=== PATIENT | male | born 1940 | race African-American/Black ===

== ENCOUNTER 2019-02-22 15:46 | Inpatient (IN) | payer OTHER ==
[~2019-02-22] VITALS: Ht 177.8 cm; Wt 66.0 kg
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
[2019-02-22 15:49] VITALS: BP 149/68
[2019-02-22] MEDS ORDERED: COREG25 MG PO (16:28)
[2019-02-22] MEDS ORDERED: ACIDOPHILUS1 EAC4 PO (16:28)
[2019-02-22] MEDS ORDERED: CELEXA10 MG PO (16:29)
[2019-02-22] MEDS ORDERED: CLONIDINE HCL0.2 M2 PO (16:29)
[2019-02-22] MEDS ORDERED: PLAVIX 75 MG TA75 M1 PO (16:29)
[2019-02-22] MEDS ORDERED: COLACE100 MG PO (16:29)
[2019-02-22] MEDS ORDERED: PROSCAR 5MG TABL5 MG PO (16:30)
[2019-02-22] MEDS ORDERED: CARDURA4 MG PO (16:30)
[2019-02-22] MEDS ORDERED: HYDROCHLOROTHIA25 M2 PO (16:31)
[2019-02-22] MEDS ORDERED: GALANTAMINE HBR24 MG PO (16:31)
[2019-02-22] MEDS ORDERED: COZAAR 25 MG TA25 M1 PO (16:35)
[2019-02-22] MEDS ORDERED: IMDUR 30 MG TAB30 M1 PO (16:35)
[2019-02-22] MEDS ORDERED: MIRALAX17 GM PO (16:36)
[2019-02-22] MEDS ORDERED: REMERON15 MG PO (16:36)
[2019-02-22] MEDS ORDERED: NAMENDA 10 MG T10 MG PO (16:37)
[2019-02-22] MEDS ORDERED: NEXIUM40 MG PO (16:37)
[2019-02-22] MEDS ORDERED: NITROGLYCERIN0.4 MG SUBLING (16:37)
[2019-02-22] MEDS ORDERED: OXYBUTYNIN 5 MG5 M2 PO (16:38)
[2019-02-22] MEDS ORDERED: SEROQUEL 25 MG25 M1 PO (16:41)
[2019-02-22] MEDS ORDERED: TRAMADOL 50 MG50 MG PO (16:42)
[2019-02-22 18:34] LABS: HEMATOCRIT 36.1 % (42.0-52.0); HEMOGLOBIN 11.6 gm/dL (14.0-18.0); MCH 27.5 pg (26.0-34.0); MCHC 32.2 g/dL (28.0-37.0); MCV 85.5 fL (80.0-100.0); PLATELET COUNT 242 thou/uL (150-400); RBC 4.23 mil/uL (4.50-6.00); WBC 6.3 thou/uL (4.0-11.0)
[2019-02-22 18:50] LABS: CALCIUM 9.3 mg/dL (8.5-10.1); CREATININE 0.8 mg/dL (0.7-1.3); POTASSIUM 3.3 mmol/L (3.5-5.1)
[2019-02-22 18:54] LABS: ALBUMIN 2.9 g/dL (3.4-5.0); TOTAL BILIRUBIN 0.2 mg/dL (<0.1-1.0)
[2019-02-22 19:09] LABS: ABSOLUTE NEUTROPHILS 3.5 thou/uL (1.4-8.2)
[2019-02-22 19:10] LABS: PLATELET ESTIMATE NORMAL
[2019-02-22 19:40] LABS: URINE BILIRUBIN NEGATIVE (Negative); URINE BLOOD 1+ (Negative); URINE CLARITY CLEAR; URINE COLOR YELLOW; URINE GLUCOSE-RANDOM* NEGATIVE (Negative); URINE KETONES NEGATIVE (Negative); URINE NITRITE-REFLEX NEGATIVE (Negative); URINE PROTEIN (DIPSTICK) 1+ (Negative); URINE SPECIFIC GRAVITY 1.015 (1.005-1.035); URINE UROBILINOGEN >= 8.0 E.U./dl (0.2-1.0)
[2019-02-22 19:43] LABS: URINE LEUKOCYTES-REFLEX 3+ (Negative)
[2019-02-22 19:54] LABS: AMP/METHAMP Negative (Negative); BARBITURATES Negative (Negative); BENZODIAZEPINES POSITIVE (Negative); COCAINE Negative (Negative); METHADONE Negative (Negative); OPIATES Negative (Negative); PCP Negative (Negative)
[2019-02-22 19:56] LABS: BACTERIA-REFLEX >30 Many /HPF (None Seen); CASTS None Seen /LPF (None Seen); CRYSTALS None Seen /LPF (None Seen); SQUAMOUS 0-3 Few /LPF (0-3); URINE RBC None Seen /HPF (0-2); URINE WBC-REFLEX >25 Many /HPF (0-5)
[2019-02-22 20:07] VITALS: BP 156/95
[2019-02-22 20:40] VITALS: BP 201/99
--- NOTE | 2019-02-23 00:57 | NUR ---
Admission Note: Patient currently resides at [facility]. Patient has been more aggressive and combative at his facility including biting, hitting, spitting and making threatening gestures. Patient had been verbally aggressive using profanity and physically aggressive. Patient was transported to [facility] for medical clearance. Patient was brought up to the unit by ED staff on [facility]. Patient initially pleasant and cooperative. Patient odorous and noted to have had an incontinent episode of bladder and bowel. Lorna care provided, clothing changed and washed, skin assessment completed. Skin currently warm, dry and intact. Patient alert and oriented to person only. Confused and forgetful. 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 Patient required max assist with staff x2 for stand/pivot transfer from [facility] to [facility]. Patient speech initially clear but is mumbling at times and having scattered thoughts. Denies pain or discomfort at this time. Patient requested to go to bed and was assisted to bed. Yellow socks and shirt on, bed alarm on, bed is in lowest position. MD notified of arrival to unit and orders were received for admission and medications. All orders noted. Patient did attempt to get out of bed in which staff responded, approximately 45 minutes after arriving to the unit. Patient was then verbally aggressive, cursing at staff, unable to be re-directed. Patient anxious and agitated. Nurse took HS medication to patient. Patient continued to curse and yell at nurse. Nurse sat with patient until he was able to calm down. At that point, patient did state "why don't you just let me , why do you care so much?" Patient denies SI/HI but states that he is "ready to go" if it is his time. Patient would have good meaningful conversation then become agitated and start cursing again. Labile mood noted with poor eye contact observed. Patient re-directed by several staff that he is in the hospital. Patient unable to be re-directed and states that all staff are lying to him. After much encouragement, patient took HS medication whole in applesauce. Patient declined any further snack. Patient currently receives Rocephin IM for the diagnosis of UTI. First dose administered this shift. No s/s of adverse effects noted at this time. Spoke with patient significant other Maria D over the phone. Verbal consent received for admission. Notified her of passcode and unit visitation times. Patient yonathan been resting quietly since approximately 30 minutes after taking HS medication.
[2019-02-23 09:31] VITALS: BP 135/71
--- NOTE | 2019-02-23 12:24 | NUR ---
Donna spoke with pt's RENETTA horn and completed the SW intake, and is available to come in for a fmaily meeting next week during the AM, she will be including pt's siblings and will call DONNA with a date and time. She also reports chuyita pt will likely return to [facility] on D/C
[2019-02-23 20:39] VITALS: BP 154/69
[2019-02-23 23:32] VITALS: BP 154/69
--- NOTE | 2019-02-24 04:19 | NUR ---
PT OUT IN DAYROOM EARLY IN THE SHIFT. COOPERATIVE WITH PHYSICAL ASSESSMENT. CONFUSED. ESCORTED TO BED FOLLOWING HS SNACKS AND MEDS. HAS SLEPT WELL THROUGH THE NIGHT TO THIS POINT IN THE AM.
[2019-02-24 07:44] VITALS: BP 152/93
--- NOTE | 2019-02-24 11:02 | NUR ---
Pt's SO will be present for a family meeting on TR at 11am. Reported this to Dr Mccabe.
--- NOTE | 2019-02-24 16:31 | NUR ---
PT A&O TO SELF. PT HAS NOT CURSED AT STAFF TODAY, NO SI/HI NOTED. TOOK ALL PO MEDS WHOLE THIS AM. L SIDE WEAKNESS NOTED REQUIRES ASSIST X2 TO STAND AND PIVOT TO CHAIR/BSC. HAS BEEN OUT OF BED SINCE THIS AM. PT IS CONFUSED THOUGH CALM. EATING ALL MEALS.
[2019-02-24 20:40] VITALS: BP 155/70
[2019-02-24 22:35] VITALS: BP 155/70
--- NOTE | 2019-02-25 02:16 | NUR ---
Patient seated in day room in recliner this evening. At approximately 2030, nurse noted that patient was experiencing the hiccups. Patient asked if he was OK, he nodded yes. A couple minutes later, nurse heard patient coughing then visualized patient vomiting a large amount of vomit. Vomit appears brown and viscous. Patient had mixed fruit for HS snack which was included in the vomitus. Patient stated that he felt much better after vomiting. Patient assisted to his room. Sponge bath given and clothing changed. No further vomiting or nausea observed.
--- NOTE | 2019-02-25 04:10 | NUR ---
PT ESCORTED TO BED AND SETTLED IN. ABOUT 399, PT EXPERIENCED ANOTHER EPISODE OF N/V. BROWNISH COLORED VOMITUS IN BED AND AREA AROUND BED. PT CLEANED UP AND LINEN CHANGED. ZOFRAN 4MG PO FOR NAUSEA. CLAIMS TO BE "FEELING BETTER" AFTER THE EPISODE. UPON EXAM, FIRM STOOL REMAINS IN RECTUM. LAST DOCUMENTED BM WAS ON 02/22. ABDOMEN SOFT. WILL OBSERVE FOR FURTHER DIFFICULTY. HAD BEEN SLEEPING WELL TO THAT POINT.
[2019-02-25 06:40] LABS: HEMATOCRIT 42.5 % (42.0-52.0); MCH 27.6 pg (26.0-34.0); MCHC 33.1 g/dL (28.0-37.0); MCV 83.3 fL (80.0-100.0); RBC 5.11 mil/uL (4.50-6.00); RDW 14.5 % (10.5-14.5); WBC 9.6 thou/uL (4.0-11.0)
[2019-02-25 06:43] LABS: HEMOGLOBIN 14.1 gm/dL (14.0-18.0)
[2019-02-25 06:50] LABS: CALCIUM 10.3 mg/dL (8.5-10.1); CREATININE 0.8 mg/dL (0.7-1.3); MAGNESIUM 1.6 mg/dL (1.8-2.4)
--- NOTE | 2019-02-25 07:16 | NUR ---
Patient had another episode of dark brown emesis, foul odor, concerning for stool. Order received for Zofran 4mg IM. Medication administered. Lab came to collect stat labs. KUB completed. Lab called with notification of Hgb 14.1. Waiting on KUB results to notify MD. BP 189/112, HR 107, Resp 22, O2 95% RA, Temp 98.6. Patient reporting a headache, unable to rate.
[2019-02-25 08:53] VITALS: BP 194/107
[2019-02-25 10:42] VITALS: BP 148/84
--- NOTE | 2019-02-25 19:47 | NUR ---
IV STARTED AT APPROX 1145 BY IV START TEAM-RIGHT FORARM 22 GUAGE NEEDLE-WRAPPED WITH COBAN AND PT MONITORED CONTNOUSLY LYNSEY [id number] UPON COMPLETION OF IV FLUIDS-SITE SALINE LOCKED PER MD ORDER FOR CONTINUED EPISODES OF N/V AND HTN. BP 170/100 AT 1700-DR SIMONS NOTIFIED-ORDERS RECEIVED-CLOINIDINE 0.1MG GIVEN PO X1 NOW ALONG WITH 1700 SCHEDULED COREG-PT DID VOM IT SHORT TIME LATER-MD NOTIFIED AND ORDER RECEIVED FOR COMPAZINE 10MG IV PUSH. BP MEDS REGIVEN AND BP RECHECK AT 1800 206/111- DR. SIMONS AND DR. FREGOSO NOTIFIED-HYDRALAZINE 10MG GIVEN IV AND BP RECHECK AT 1850 160/94. FLEETS ENEMA GIVENAT 1830-ASSISTED TO COMMODE AND HAD LARGE SOFT FORMED STOOL-DR. SIMONS ON UNIT AT APPROX [id number] PARTNER NADIA CONTACTED AND ADDITIONAL HISTORY OBTAINED-SHE REPORTS PT WAS RECENTLY ADMITTED TO [facility] APPROX 2 WEEKS AGO [facility] UNMANAGABLE BP-SEES AND [facility] AT [facility].
[2019-02-25 19:50] VITALS: BP 170/99
--- NOTE | 2019-02-25 23:30 | NUR ---
ASSUMED CARE OF PATIENT AT SHIFT CHANGE AT 1900. DAY SHIFT RN CHLOE STILL PRESENT DR NERI CAME IN TO ASSESS PATIENT. PATIENT'S BP STILL RUNNING HIGH AT 162/90 AFTER HYDRALAZINE 10MG IVPUSH GIVEN AT 1930. COMPAZINE 5MG GIVEN ALSO FOR N/V [id number]. PATIENT HAD LARGE BM RESULTS WITH ENEMA AROUND 1730 TODAY. PATIENT'S BP AT 2135 199/102. HYDRALIZINE 25MG PO GIVEN PER HOSPITALIST DANNA GREWAL. PATIENT ALSO GIVEN COMPAZINE 5MG IVP AT 2142 FOR NAUSEA AND DRY HEAVES. PATIENT HAS KEPT THE HYDRALAZINE 25MG PILL DOWN. B/P AT 2320 IS 199/102. PATIENT'S NEXT DOSE OF HYDRALAZINE NOT DUE TILL 0130. CALLED AND LEFT MESSAGE FOR Uriel HUDSON NP TO CALL BACK REGARDING WHAT TO DO WITH THIS HIGH BP. STILL AWAITING CALL BACK. PATIENT REFUSING 2ND ENEMA. PATIENT IS RESTING AND NO N/V IF LEFT UNMOVED. PATIENT SLEEPING IN BETWEEN BP CHECKS. PATIENT HAD STROKE A LITTLE OVER WEEK AGO AND ALERTED HANNAH CLAY IN TELEPHONE MESSAGE TO HER. PATIENT RESTING QUIETLY AT THIS TIME. WILL CONTINUE MONITORING BP AND N/V STATUS.
[2019-02-26] VITALS (7 sets, daily range): BP systolic 122–169; BP diastolic 66–98
--- NOTE | 2019-02-26 00:06 | NUR ---
CALLED LOADER MAGAZINE GRINDERHANNAH BACK SINCE HAD NOT HEARD BACK FROM HER. LET HER KNOW THAT THE BP HAS NOW COME DOWN TO 169/98 AND P 86. SHE INSTRUCTED JUST TO WAIT TILL NEXT DOSE OF HYDRALAZINE 10MG IVP IS DUE AND GIVE ONLY IF SYSTOLIC IS OVER 160. PATIENT SLEEPING AT THIS TIME AND NO VOMITING. CONTINUING TO MONITOR.
--- NOTE | 2019-02-26 01:54 | NUR ---
CALLED HANNAH HUDSON NP WITH PATIENT'S BP AT 215/103 AND PULSE 100. LET HER KNOW IT WAS TIME TO GIVE HYDRALAZINE 10MG IVP AND WANTED TO KNOW IF SHE WANTED ME TO GIVE MORE THAN 10 MG OF HYDRALAZINE OR TRY SOMETHING ELSE. SHE ORDERED THE HYDRALAZINE 10MG IVP AND ZOFRAN 4MG 0DT FOR NAUSEA. SHE IS INCREASING HIS SCHEDULED DOSES OF HYDRALAZINE AND COMPAZINE BEGINNING AT 0600 TODAY. SHE STATES SHE IS REVIEWING HIS CHART AND WILL DECIDE WHETHER TO ADMIT PATIENT AND WHEN UNDER DR RODRIGUES. THIS NURSE CONTINUING TO MONITOR PATIENT'S BP AND N/V STATUS UNTIL SOMETHING CHANGES. IV SITE IN PLACE AND PATENT WITH NS FLUSH BEFORE AND AFTER HYDRALAZINE IVP. CONTINUING TO MONITOR PATIENT.
[2019-02-26 05:40] LABS: HEMATOCRIT 41.8 % (42.0-52.0); HEMOGLOBIN 13.4 gm/dL (14.0-18.0); MCH 27.1 pg (26.0-34.0); MCV 84.8 fL (80.0-100.0); RBC 4.93 mil/uL (4.50-6.00); RDW 14.7 % (10.5-14.5); WBC 14.8 thou/uL (4.0-11.0)
[2019-02-26 05:47] LABS: CALCIUM 9.3 mg/dL (8.5-10.1); CREATININE 0.7 mg/dL (0.7-1.3); MAGNESIUM 1.7 mg/dL (1.8-2.4); POTASSIUM 3.1 mmol/L (3.5-5.1)
--- NOTE | 2019-02-26 06:33 | NUR ---
CALLED HANNAH WOOD NP TO VERIFY THAT IT IS OK TO HYDRALAZINE 50MG FOR PATIENT'S BP OF 141/87. SHE SAID TO GO AHEAD AND GIVE. ALSO LET HER KNOW THAT PATIENT'S MAGNESIUM LEVEL IS 3.1 THIS MORNING PER LABS AND WAS 3.0 YESTERDAY MORNING BEFORE GIVING MAGNESIUM IV YESTERDAY. SHE STATES SHE WILL LET US KNOW WHEN SHE COMES IN WHAT SHE WANTS TO DO ON THE MAGNESIUM. PATIENT'S BP HAS BEEN SLOWLY COMING DOWN. IT WAS 155/83 AT 0500 AND AT 0630 IT IS 141/87. PATIENT IS ABLE TO HOLD PILLS DOWN. HE DID NOT HAVE A BM LAST NIGHT BUT DID HAVE SOME SMEARING. NOTIFIED HANNAH Cespedes NP THAT PATIENT DID NOT GET 2ND ENEMA D/T HE REFUSED AND WAS FIGHTING BP AND N/V ALL NIGHT. SHE SAID OK FOR NOW.
--- NOTE | 2019-02-27 00:08 | NUR ---
PATIENT IS LAYING IN BED AND A/O X 2. HE STATES HE IS FEELING BETTER TONIGHT THEN HE DID. PATIENT UP TO [facility] WITH X2 ASSIST. HEMIPARESIS ON LEFT SIDE OF BODY. PATIENT STILL WITH SLIGHT NAUSEA BUT DOES NOT WANT ANY MEDS FOR IT AT THIS TIME. HE IS ABLE TO TAKE HIS MEDS WHOLE. HE REFUSES HS SNACK. BP TONITE IS STABLE AT 149/71. PATIENT IS INCONTINENT AT TIMES. PATIENT HAS BOWEL SOUNDS X 4. NO BM OF YET ON THIS SHIFT. PATIENT DENIES PAIN. PATIENT SPEAKS VERY SOFTLY. HE IS JOKING TONITE. HE GOT IRRITATED WITH HIMSELF WHEN HE SPILLED WATER ON HIMSELF. PATIENT SITS UP IN A HIBACK WC DURING DAY. BED IN LOW POSITION AND BED ALARM ON.
--- NOTE | 2019-02-27 06:35 | NUR ---
PATIENT WAS UP AND CHANGED AND IN WC AT 3AM THIS MORNING. HE HAS BEEN IN [facility] SPIRITS. DENIES PAIN OR NAUSEA. PATIENT HAS BEEN SOCIALIZING APPROPRIATELY IN DINING ROOM WITH OTHER RESIDENTS. HE HAS OCCASIONAL VISUAL HALLUCINATIONS. TODAY HE SWEARS HE SAW HIS UNCLE JANIS WALKING THE HALLS. PATIENT A/0 X1
[2019-02-27 06:50] LABS: HEMATOCRIT 39.9 % (42.0-52.0); HEMOGLOBIN 12.8 gm/dL (14.0-18.0); MCH 27.2 pg (26.0-34.0); MCHC 32.2 g/dL (28.0-37.0); MCV 84.6 fL (80.0-100.0); RBC 4.72 mil/uL (4.50-6.00); RDW 14.2 % (10.5-14.5); WBC 14.6 thou/uL (4.0-11.0)
[2019-02-27 07:23] LABS: CALCIUM 9.4 mg/dL (8.5-10.1); CREATININE 0.8 mg/dL (0.7-1.3); MAGNESIUM 1.8 mg/dL (1.8-2.4); POTASSIUM 3.7 mmol/L (3.5-5.1)
--- NOTE | 2019-02-27 12:52 | NUR ---
Care assumed of patient at 0715: Patient alert and oriented to person. Patient confused and forgetful. Patient seated in w/c for locomotion about room and unit. Patient has hemiplegia post CVA. Denies pain or discomfort. Speech slurred and mumbled at times. Able to make immediate wants/needs known. Patient believes that he is at a train station or an airport and is concerned about when the train/plane is going to be leaving. Patient worried about his fiance knowing where he is at. Patient more confused and delusional this AM. Patient unable to be re-directed this AM. Irritable and agitated at times. No verbal or physical aggression observed. Took HS medication whole without difficulty. Denies SI/HI/AH/VH. Patient had a visitor this AM which appeared to calm him down and introduce him more to reality.
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
[2019-02-27 16:29] VITALS: BP 90/52
--- NOTE | 2019-02-27 16:29 | NUR ---
DONNA called and left a VM for [facility], then sent a fax update
[2019-02-27 19:38] VITALS: BP 111/69
[2019-02-28 00:07] VITALS: BP 111/69
--- NOTE | 2019-02-28 00:13 | NUR ---
PATIENT WAS SITTING UP IN DINING ROOM WITH OTHERS WHEN I CAME ON SHIFT AT 1900. HE WAS PLEASANT AND ASKED WHY HE WAS HERE. EXPLAINED THAT HE HAD SOME BP ISSUES AND BECAME COMBATIVE AND WAS HITTING OTHERS. HE BECAME REMORSEFUL AND SAID," I AM SO SORRY. I DON'T EVER WANT TO HURT ANYONE." I WENT ON TO EXPLAIN THAT HIS BP HAD BEEN UP AND SOMETIMES IT CAUSES PEOPLE TO ACT MORE ANGERED. HE HAS BEEN UP IN HIS WC MOST OF THE DAY. HE REQUESTED HIS HS PILLS JUSTINE SO HE COULD GO TO BED FOR THE NIGHT. HE BECAME VERY AGITATED 45 MINUTES LATER HE WAS WAITING ON TIME FOR HIS PILLS AND SAT OUTSIDE THE NURSE'S STATION SHOUTING OUT TO HURRY UP BECAUSE HE HAS WAITED LONG ENOUGH AND WANTS TO GO TO BED. WENT TO GIVE PILLS TO PATIENT AND PUT HIM TO BED. HE IS ASSIST X 2-3 D/T LEFT SIDED HEMIPARESIS. HE GOT ANGRY AND SAID HE DID NOT WANT TO GO TO BED AND NEVER SAID HE DID. PATIENT PLACED BACK IN DR TO SIT TILL HE WAS MORE READY. PATIENT FINALLY PUT TO BED AN HOUR LATER WITHOUT COMPLAINTS. DENIES PAIN, N/V. NO BM ON THIS SHIFT SO FAR. PATIENT IS INCONTINENT AND IS CHECKED Q 2 HOURS. BED ALARM ON AND BED IN LOW POSITION. PATIENT HAS TRIED ON EARLIER SHIFT TO STAND ON HIS OWN. MONITORING CLOSELY.
[2019-02-28 08:59] VITALS: BP 122/62
--- NOTE | 2019-02-28 16:01 | NUR ---
DONNA and Dr Mccabe met with pt and his family today. Pt will likely d/c to [facility] early next week Monday or monday
--- NOTE | 2019-02-28 16:46 | NUR ---
PT ALERT AND ORIENTED TIMES THREE WITH SOME CONFUSION. VSS. PT DENIES SI/HI/AH/VH. PT TOLERATES MEDS AND MEALS. PT UP PER WC. PT DID ATTEND ONE GROUP TODAY. WILL CONTINUE TO MONITOR.
[2019-02-28 21:05] VITALS: BP 136/73
--- NOTE | 2019-03-01 05:18 | NUR ---
The pt. was talkative with staff, irritable when he got a new roomate. He refused his HS medications afterwards, even after talking with him further. He slept well tonite, used fall precautions.
[2019-03-01 08:17] VITALS: BP 127/71
--- NOTE | 2019-03-01 13:34 | NUR ---
Received awake, on a wheelchair in the day unit. Vital signs stable. Medications given as prescribed, able to swallow tablets w/o difficulty. A+O2-3 with episodes of confusion. On room air. Visited by today- she said that they are working on getting him a wheelchair from [place]. Pt seen by Physical therapist today, able to stand patient up- moderate assist, step pivot for transfers, taught pt to do stretches for his shoulders. No agression or restlessness noted from the patient. Assisted with ADLs. Tolerating meals, no nausea, no vomiting or abdominal pain noted.
--- NOTE | 2019-03-01 14:04 | NUR ---
Date of Admission: 02/22/19 Date of Activity Therapy Assessment: 02/25/19 Activity Goal: Increase engagement Initial Goal: 1 Group activity/day Weekly progress towards goal: On track Group participation level: Moderate Behaviors observed: Patient's participation lacked during first few days of admission d/t medical needs. Patient has now begun to attend groups though not consistently. Patient does not exhibit aggression or combative behavior when present in group. Plan: No change towards goal
[2019-03-01 14:51] VITALS: BP 127/44
--- NOTE | 2019-03-01 16:07 | NUR ---
Sw sent updates to [facility].
[2019-03-01 16:31] LABS: HEMATOCRIT 37.5 % (42.0-52.0); MCHC 32.1 g/dL (28.0-37.0); MCV 84.3 fL (80.0-100.0); PLATELET COUNT 259 thou/uL (150-400); RBC 4.45 mil/uL (4.50-6.00); RDW 14.7 % (10.5-14.5); WBC 7.2 thou/uL (4.0-11.0)
[2019-03-01 16:48] LABS: ANION GAP 5 mmol/L (7-16); BUN 21 mg/dL (7-18); CALCIUM 8.8 mg/dL (8.5-10.1); CHLORIDE 101 mmol/L (98-107); CO2 33 mmol/L (21-32); CREATININE 0.8 mg/dL (0.7-1.3); GLUCOSE 113 mg/dL (74-106); POTASSIUM 3.5 mmol/L (3.5-5.1); SGOT 8 U/L (15-37); SGPT < 6 U/L (30-65); SODIUM 139 mmol/L (136-145); TOTAL BILIRUBIN 0.4 mg/dL (<0.1-1.0); TOTAL PROTEIN 6.5 g/dL (6.4-8.2)
[2019-03-01 16:56] LABS: ABSOLUTE NEUTROPHILS 3.7 thou/uL (1.4-8.2); ANISOCYTOSIS 1+
[2019-03-01 19:44] VITALS: BP 129/75
[2019-03-02 00:57] VITALS: BP 129/75
--- NOTE | 2019-03-02 02:03 | NUR ---
This nurse in doing rounds. Patient was holding his upper left chest, moaning, grimacing. Nurse asked patient if he was having pain, he stated yes. When asked to rate his pain, patient was unable to do so. When asked if patient was going to vomit, patient stated "no". DANNA Marmolejo notified. Order obtained for STAT EKG and STAT Troponin level. VS 162/79, HR 80, Resp 14, Temp 98.9, O2 94% RA. Patient provided Nitro tab 0132 po. Patient continued to report pain. At 0140, Nitro tab and Mylanta po provided. EKG completed. Preliminary NSR with left bundle branch block. At 0150, patient reported that he was still having some pain but was feeling "better". BP 141/82, HR 86, Resp 14, O2 86% RA. Patient resting quietly at this time. Awaiting lab results.
--- NOTE | 2019-03-02 03:52 | NUR ---
RESULTS OF TROPONIN .08. NORMAL RANGE LESS THAN .08. PT RESTING QUIETLY AT THIS TIME.
--- NOTE | 2019-03-02 06:09 | NUR ---
Patient Troponin level 0.08 this AM. DANNA Marmolejo, notified of EKG results and Troponin level. No prior EKG study available to see if left BBB is new or routine for patient. Order received for EKG and Troponin level at 0800 this morning. Also to consult Dr. Noe Hanson, cardiology. Spoke with Tr with answering service for Dr. Hanson regarding new consult.
[2019-03-02 07:36] VITALS: BP 171/84
--- NOTE | 2019-03-02 10:20 | EKG ---
[place] [address] [facility] [employer] [address] ELECTROCARDIOGRAM REPORT Name: DEVIN CRANE Room #: 526B-B ADM IN M.R.#: [id number] Admission: 02/22/19 Attend Phys: Topher Mccabe DO Discharge: Date of : 44 Report #: [id number] THIS REPORT FOR: //name// [facility] Test Date: 2019-03-02 Test Time: 01:50:47 Pat Name: DEVIN CRANE Department: Room: 52 B Gender: M Ditch Rider: MEDARDO : 1940 Requested By: Nelda Marmolejo Order Number: [id number] MD: Noe Hanson Measurements Intervals [place] Rate: 88 P: 40 WI: 166 QRS: -67 QRSD: 126 T: 86 QT: 391 QTc: 473 Interpretive Statements Sinus rhythm Left bundle branch block No previous ECG available for comparison Electronically Signed On 03-02-2019 10:20:31 CDT by Noe Hanson [email or web address] <ELECTRONICALLY SIGNED> By: Noe Hanson MD 03/02/19 1020 0150 0150 Noe Hanson MD /EPI
[2019-03-02 16:53] VITALS: BP 108/63
--- NOTE | 2019-03-02 18:27 | NUR ---
PATIENT ORIENTED TO SELF AND LOCATION AND MOSTLY COOPERATIVE, BUT SOMETIMES REFUSING MEDS. SPOUSE AT AM VISITING HOURS. SPOUSE REQUEST PATIENT TO BE SHAVED. PATIENT WAS SEVERAL HOURS SLEEPING IN BED THIS AFTERNOON. POSSIBLE DC TO [facility] ON MONDAY.
[2019-03-02 19:58] VITALS: BP 149/73
--- NOTE | 2019-03-03 02:02 | NUR ---
1909-Report received from day shift nurse and care assumed. Keagan had a bright affect tonite, smiling talking with continuity writer during assessment, alert answering questions asked also. He was medication compliant. His temperature at shift change was 99.3F and later at 2300 rechecked and 97.9F. He had no c.o. pain, was restless/wide awake in his bed with no c.o. voiced/no c.o. pain/repositioned every 2 hours, at 0000 and ordered Seroquel 50 mg. po x 1 now and he was given that at 0045 when available. It was effective for his restlessness, was asleep on rounds at 0130. bu
[2019-03-03 06:30] VITALS: BP 152/79
--- NOTE | 2019-03-03 07:27 | HC ---
[facility] [place] [address] CONSULTATION Name: DEVIN CRANE Room #: 526B-B ADM IN M.R.#: [id number] Admission: 02/22/19 Attend Phys: Topher Mccabe DO Discharge: Date of : 44 Report #: [id number] THIS REPORT FOR: //name// CC: Dawit Mccabe DATE OF SERVICE: 03/02/2019 CARDIOLOGY CONSULTATION CHIEF COMPLAINT: Chest pain. HISTORY OF PRESENT ILLNESS: This is a 78-year-old gentleman with a history of dementia, CVA, hypertension, depression, admitted to the [facility] for agitation and combativeness. He was diagnosed with UTI, undergoing treatment with antibiotics. We are asked to evaluate the patient for chest pain. The patient describes a discomfort in his left lower sternal area, reproducible with palpation over the area. He denies any shortness of breath, lightheadedness or palpitations. The initial troponin level is 0.08. The ECG reveals sinus rhythm, with nonspecific IVCD and left axis deviation. The patient is not oriented to place or year. PAST MEDICAL HISTORY: Dementia with severe depression, prior history of CVA with hemiplegia, history of hypertension, osteoarthritis. ALLERGIES: AMLODIPINE, DONEPEZIL, LISINOPRIL, DULOXETINE. FAMILY HISTORY: Unobtainable. MEDICATIONS: Please see the MAR for full listing. SOCIAL HISTORY: No apparent history of tobacco use. REVIEW OF SYSTEMS: Unobtainable. PHYSICAL EXAMINATION: VITAL SIGNS: Blood pressure is 160/80, heart rate is 80 beats per minute. GENERAL APPEARANCE: This is a thin, elderly, male in no acute distress. HEENT: Normocephalic, atraumatic. Oral mucosa moist. NECK: Supple. LUNGS: Clear to auscultation. CARDIAC: Regular rate and rhythm, S1, S2 positive. ABDOMEN: Soft, nontender. EXTREMITIES: No cyanosis, no edema. LABORATORY VALUES: White count 7.2, hemoglobin is 12.0. Creatinine is 0.8. [facility] [address] [place] [address] CONSULTATION Name: DEVIN CRANE Room #: 526B-B ADM IN .R.#: [id number] Admission: 02/22/19 Attend Phys: Topher Mccabe DO Discharge: Date of : 44 Report #: [id number] Troponin is 0.08 ECG reveals sinus rhythm, nonspecific IVCD, left axis deviation. ASSESSMENT AND PLAN: 1. Chest pain syndrome, the pain is atypical, it is reproducible with palpation over the left lower sternal area, probably due to musculoskeletal etiology. The significance of a minimal troponin level is unclear. It may be a false positive. He has unknown previous cardiac history. We will obtain an echocardiogram. Doubt that this is ischemia related. 2. Hypertension. Continue on carvedilol, clonidine, Cardura and losartan. 3. Cerebrovascular accident. Continue with Plavix therapy. 4. Depression/dementia. Continue with medications and therapy. <ELECTRONICALLY SIGNED> By: Noe Hanson MD 03/03/19 0727 0807 0032 Noe Hanson MD /nt
[2019-03-03 07:52] VITALS: BP 150/73
--- NOTE | 2019-03-03 11:48 | NUR ---
Has been up this morning, he is alert and oriented x 2, he denies pain, he is calm and cooperative with meds and meals, he denies SI/HI and AVH, he has no agitation at this time, stated he is doin well and wants to go "home" not sure "why I'm here". Continue to monitor for behaviors and safety.
[2019-03-03 19:52] VITALS: BP 164/88
--- NOTE | 2019-03-04 01:41 | NUR ---
PATIENT WAS IN BED ON ASSESSMENT. IS ALERT X 1, AND CONFUSED. NO S/S OF AH/VH OBSERVED. TAKES DIET WELL. TAKES PILLS WHOLE WITH OUT PROBLEMS. HAS LEFT SIDE WEAKNESS FROM STROKE. W/C BOUND. NO THREATS THIS SHOIFT SO FAR TO STAFF. SLEEPING WELL TONIGHT. IS INCOT OF BLADDER AND BOWEL. UP TO W/C TO BATHROOM WHEN HE WAKEWS UP. VS GOOD. DENIES ANY PAIN. NO COMBATIVE BEHAVIOR THIS SHIFT SO FAR TO RN. CONT PLAN OF CARE.
[2019-03-04 09:28] VITALS: BP 134/77
[2019-03-04 09:40] VITALS: BP 134/77
--- NOTE | 2019-03-04 11:31 | NUR ---
Assess due to length of stay. Admit to [facility] unit for depression and vascular dementia. Was constipated and not eating much, S/P enema with +BM and intake showing some improvement. No wt loss during stay. Discharge pending soon. Low nutrition risk
[2019-03-04] MEDS ORDERED: CATAPRES-TTS 20.2 MG TRANSDERM (15:22)
[2019-03-04] MEDS ORDERED: HYDRALAZINE 5050 MG PO (15:23)
[2019-03-04] MEDS ORDERED: IMDUR 30 MG TAB30 M1 PO (15:23)
[2019-03-04] MEDS ORDERED: CARVEDILOL12.5 MG PO (15:24)
[2019-03-04] MEDS ORDERED: REMERON15 MG PO (15:25)
--- NOTE | 2019-03-04 16:23 | NUR ---
DC CALLED TO [facility]UYRIDIA DANIELS CONTACTED VIA PHONE AND DC INSTRUCTIONS REVIEWED INCLUDING MEDS,DX,FU AND MEDICARE DC FORM-REVIEWED BELONGINGS LIST AND ALL BELONGINGS SENT WITH PT-DC AT APPROX 1545 ACCOMPNIED BY [facility] TRANSPORTATION STAFF AND RN VIA WC-. ALERT AT TIME OF DC -VS STABLE DENIES C/O PAIN.
--- NOTE | 2019-03-04 16:26 | NUR ---
SW set up d/c for this pm. Will go back to [facility]. Reported this to nursing, pt and SO.
--- NOTE | 2019-03-05 07:56 | EKG ---
[place] [address] [address] [facility] [place] [address] ELECTROCARDIOGRAM REPORT Name: DEVIN CRANE Room #: 526B-B DIS IN M.R.#: [id number] Admission: 02/22/19 Attend Phys: Topher Mccabe DO Discharge: 03/04/19 Date of : 44 Report #: [id number] THIS REPORT FOR: //name// [facility] Test Date: 2019-03-04 Test Time: 12:48:15 Pat Name: DEVIN CRANE Department: Room: 526B B Gender: M Soaker Meat: TRAM : 1940 Requested By: Topher Mccabe Order Number: [id number] MD: Braeden Arrieta Measurements Intervals Media Rate: 91 P: 43 NH: 161 QRS: -68 QRSD: 119 T: 92 QT: 384 QTc: 473 Interpretive Statements Sinus rhythm Left anterior hemiblock Nonspecific intraventricular conduction delay Compared to ECG 03/02/2019 01:50:47 No significant changes Electronically Signed On 03-05-2019 7:56:00 CDT by Braeden Arrieta [email or web address] <ELECTRONICALLY SIGNED> By: Braeden Arrieta MD, [facility] 03/05/19 0756 1248 1248 Braeden Arrieta MD, [facility] /EPI
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
== END 2019-03-04 16:25 | DRG 885 ==
LOC: ER 15:46 → EROBS 17:42 → SBH 17:42 → EROBS 17:42 → SBH 20:10
PROVIDERS: Internal Medicine; Nurse Practitioner Acute Care; Nurse Practitioner Family; ADMIT Psychiatry & Neurology Psychiatry
DX: F32.3 Major depressive disorder, single episode, severe with psychotic features (principal); F01.51 Vascular dementia, unspecified severity, with behavioral disturbance; N39.0 Urinary tract infection, site not specified; E87.0 Hyperosmolality and hypernatremia; I10 Essential (primary) hypertension; F43.0 Acute stress reaction; K59.00 Constipation, unspecified; E87.6 Hypokalemia; E83.42 Hypomagnesemia; D72.821 Monocytosis (symptomatic); E11.9 Type 2 diabetes mellitus without complications; M19.90 Unspecified osteoarthritis, unspecified site; K21.9 Gastro-esophageal reflux disease without esophagitis; Z86.73 Personal history of transient ischemic attack (TIA), and cerebral infarction without residual deficits; Z79.02 Long term (current) use of antithrombotics/antiplatelets; Z79.899 Other long term (current) drug therapy; Z88.8 Allergy status to other drugs, medicaments and biological substances
CPT/HCPCS: 10880